=== PATIENT | male | born 1965 ===

== ENCOUNTER 2021-12-18 09:21 | Day surgery (SDC) | payer OTHER ==
[~2021-12-18 09:21] MED LIST: COMPAZINE10 MG PO; Norco 5-325 Ta1 EACH PO
== END 2021-12-18 22:48 | disposition home or self-care (01) ==
LOC: CT 09:21
DX: R06.00 Dyspnea, unspecified (principal); Z82.49 Family history of ischemic heart disease and other diseases of the circulatory system
CPT/HCPCS: 75571

== ENCOUNTER 2022-11-19 01:48 | Inpatient (IN) | payer OTHER ==
[~2022-11-19] VITALS: Ht 180.3 cm; Wt 93.3 kg
[2022-11-19 02:22] LABS: BASOPHILS ABSOLUTE AUTO 0.04 K/mm3 (0.00-0.23); BASOPHILS PERCENT AUTO 0 % (0-2); EOSINOPHILS PERCENT AUTO 0 % (0-6); Hematocrit 49.5 % (37.0-53.0); Hemoglobin 17.3 g/dL (13.5-17.5); IMMATURE GRAN ABSOLUTE AUTO 0.09 K/mm3 (0.00-0.10); IMMATURE GRAN PERCENT AUTO 0 % (0-1); LYMPHOCYTES ABSOLUTE AUTO 1.28 K/mm3 (0.84-5.20); LYMPHOCYTES PERCENT AUTO 6 % (21-46); MONOCYTES ABSOLUTE AUTO 1.62 K/mm3 (0.16-1.47); MONOCYTES PERCENT AUTO 8 % (4-13); Mean Corpuscular HGB 28.7 pg (26.0-34.0); Mean Corpuscular HGB Conc 34.9 g/dL (31.5-36.5); Mean Corpuscular Volume 82 fL (80-100); Mean Platelet Volume 8.6 fL (9.1-12.4); NEUTROPHILS ABSOLUTE AUTO 17.84 K/mm3 (1.96-9.15); NEUTROPHILS PERCENT AUTO 86 % (41-73); Platelet Count 387 K/mm3 (150-400); RDW Coefficient Variation 12.4 % (11.7-14.2); RDW Standard Deviation 37.7 fL (35.1-46.3); Red Blood Cell Count 6.02 M/mm3 (4.30-5.90); White Blood Cell Count 20.87 K/mm3 (4.00-11.30)
[2022-11-19 02:48] LABS: Albumin, Blood 4.2 g/dL (3.4-5.0); Bilirubin, Total 0.9 mg/dL (0.1-1.0); Bun/Creatinine Ratio 9.4 (12.0-20.0); Calcium, Blood 10.2 mg/dL (8.5-10.1); Creatinine, Blood 1.06 mg/dL (0.60-1.20); Globulin, Blood 4.1 g/dL (2.2-4.0); Total Protein, Blood 8.3 g/dL (6.4-8.2)
[2022-11-19 03:29] LABS: Ethanol (Alcohol), Blood, Med <3 mg/dL; Magnesium, Blood 1.8 mg/dL (1.6-2.4)
[2022-11-20] MEDS ORDERED: OXYC5 PO (10:00)
[2022-11-20] MEDS ORDERED: AMOCLA875 PO (10:01)
== END 2022-11-20 10:25 | disposition home or self-care (01) | DRG 340 ==
LOC: ER 01:48 → SURS 04:17
PROVIDERS: Emergency Medicine; Surgery; ADMIT Surgery
PROC: 0DTJ4ZZ Resection of Appendix, Percutaneous Endoscopic Approach (ICD-10-PCS; principal; 2022-11-19 09:30)
DX: K35.32 Acute appendicitis with perforation, localized peritonitis, and gangrene, without abscess (principal); E66.3 Overweight; Z68.27 Body mass index [BMI] 27.0-27.9, adult; Z79.899 Other long term (current) drug therapy
CPT/HCPCS: 36415; 74176; 80053; 83605; 83690; 83735; 84145; 85025; 88304; 96365; 96375; 99285-25; A9270; G0480; J1100; J1170; J1885; J2250; J2405; J2543; J2704; J2795; J3010; J7030; J7120